=== PATIENT | female | born 1950 | race Caucasian/White ===

== ENCOUNTER 2022-12-21 13:05 | Outpatient (OUT) | payer MEDICARE, SELFPAY ==
--- NOTE | 2022-12-21 13:06 | VEIN_ITS ---
Patient: RASHAUN TRACEY Exam Date: 12/21/2022 : 1950 Gender:F Ordering : DR LAURENT MUSTAFA M.D. Admission #: [id number] Family : Order #: [id number] CLICK HERE TO VIEW EXAM RADIOLOGY REPORT PROCEDURE: VC EXT VENOUS REFLUX KEELEY LMTD COMPARISON: None. INDICATIONS: I83.813 Painful varicose veins of bilat lower extremities TECHNIQUE: Duplex imaging of the lower extremity to assess the deep and superficial venous system for the presence of deep or superficial venous incompetence and to document the location and severity of disease. The study includes evaluation of the great saphenous vein (GSV), anterior accessory saphenous vein (AASV) and small saphenous vein (SSV). Patient scanned in reverse Trendelenburg and standing. FINDINGS: RIGHT LOWER EXTREMITY: Saphenofemoral Junction Reflux: Yes 6.7mm 3.5 sec GSV: Diam (mm) Reflux/ Time (sec) Proximal Thigh 5.7 Yes 2.9 Mid Thigh 4.1 Yes 1.4 Distal Thigh 4.9 Yes 1.2 Prox Calf 4.4 Yes 1.6 Mid Calf 4.0 Yes 1.6 Saphenopopliteal Junction Reflux: 5.5mm Yes 1.9 SSV: Proximal Calf 5.5 Yes 1.5 Mid Calf 4.9 Yes 1.4 AASV: Proximal Thigh 5.9 Yes 1.9 Mid Thigh 4.6 Yes 0.9 Distal Thigh Thrombi: No acute or chronic thrombus visualized Compressibility: Normal Flow: Normal Preforator: Dist/med calf near area of wound 4.0mm with 1.3s reflux. Dist/med 3.4mm with 1.0s reflux. Tech Note: Incompetent GSV, SSV, and AASV. Patent varicose vein mid/med calf 2.3mm with 0.8s reflux. Patent varicose vein 4.0 mm with 1.0s reflux. Patent varicose vein dist/med calf 3.5mm with 2.1s reflux. LEFT LOWER EXTREMITY: Saphenofemoral Junction Reflux: Yes 7.2 mm 1.4 sec GSV: Diam (mm) Reflux/Time (sec) Proximal Thigh 5.9 Yes 1.0 Mid Thigh 4.0 Yes 1.2 Distal Thigh 4.2 Yes 0.9 Prox Calf 3.9 No Mid Calf 3.1 No Saphenopopliteal Junction Relux: 2.2 mm No SSV: Proximal Calf 2.3 No Mid Calf 2.1 No AASV: Not present Proximal Thigh Mid Thigh Distal Thigh Thrombi: No acute or chronic thrombus visualized Compressibility: Normal Flow: Normal [employer]: Mid/med calf 4.1mm with 0s reflux. Tech Note: Incompetent GSV. Patent varicose vein mid/med calf 5.2mm with 0.9s reflux. CONCLUSION: 1. Moderate to severe right and mild left great saphenous vein venous insufficiency with dilatation and saphenopopliteal junction reflux 2. Moderate right small saphenous and anterior accessory saphenous vein venous insufficiency 3. Incompetent perforating vein on the right leg corresponding to an open wound 4. Moderate right leg and mild left leg incompetent varicose veins Dictated by: Laurent Mustafa MD on 12/21/2022 at 14:52 Approved by: Laurent Mustafa MD on 12/21/2022 at 14:54
--- NOTE | 2022-12-21 13:06 | VEIN_ITS ---
Patient: RASHAUN TRACEY Exam Date: 12/21/2022 : 1950 Gender:F Ordering : DR LAURENT MUSTAFA M.D. Admission #: [id number] Family : Order #: [id number] CLICK HERE TO VIEW EXAM RADIOLOGY REPORT PROCEDURE: FACILITY [facility] - OFFICE VISIT INITIAL COMPARISON: None. PROGRESS NOTES: 72-year-old female who presents with a long history of lower extremity pain, swelling and varicose veins culminated in a nonhealing ulceration of the right posterior medial lower leg 2 months ago. The patient has been seen in the vein clinic without significant improvement of the ulcer. The patient's right leg is far worse than the left. The patient describes the pain as aching and burning occasionally heavy. The patient rates the pain as a 6 on a scale of 1-10. The patient has worn compression stockings on and off for several years. The patient's symptoms are worse with prolonged sitting and standing and partially relieved by pain medication and leg elevation. The patient currently is not wearing compression stockings due to pain from the ulceration. The patient denies any signs and symptoms to suggest arterial ischemia. The patient describes a family history significant for varicose veins in her mother and maternal grandmother. Type 2 diabetes in her mother. Heart disease in her brother. period 10 grandchildren. The patient has a 20 pack year history of smoking 1/2 pack per day for the past 40 years. Occasional social alcohol use. No illicit drug use. Past medical history significant for sciatica, type 2 diabetes, heart murmur, lymphedema. Past surgical history neck surgery, low back surgery, tonsillectomy. No history of deep venous thrombus or pulmonary embolus. See separate history and physical for medication list. No prior treatment for varicose or spider veins. Nursing notes were reviewed. After history and physical exam I discussed at length the pathophysiology of venous hypertension and possible treatments, therapies and strategies available. We discussed at length the importance of elevating the lower extremities above the level of the heart, increased physical activity and compression stocking use. I discussed with the patient that her symptoms are likely multifactorial and related to soft tissue in vascular disease from long-standing diabetes, likely component of lymphedema, a component related to poor wound healing from smoking, and activity and venous disease. Treatments hopefully will improve wound healing but ultimately likely will not completely resolve her issues. Ultrasound venous reflux study performed the same day was discussed at length with the patient. The report demonstrates moderate to severe right great , mild left great saphenous, moderate right small and anterior accessory saphenous vein venous insufficiency. Saphenofemoral junction reflux. Incompetent right leg perforating vein in the region of the patient's ulceration. Bilateral incompetent varicose veins right greater than left PHYSICAL EXAM: The right leg demonstrates moderate subcutaneous swelling. Moderate diffuse hemosiderin staining below the knee. There is a full-thickness ulceration distal posterior medial active venous ulcer measuring 8 x 6 cm in diameter. Mild scattered varicose and reticular veins. The left leg demonstrates moderate subcutaneous swelling. Multiple healed ulcerations are observed the largest measuring 2 x 1.5 cm. Moderate diffuse hemosiderin staining below the knee. No active ulceration. Mild scattered varicose and reticular veins Both thighs, legs and feet were symmetrically warm to the touch. posterior tibial and dorsalis pedis pulses were poor. VEIN/[facility] IMPRESSION: 1. Moderate to severe right great, mild left great, moderate right small and anterior accessory saphenous vein venous insufficiency venous insufficiency with saphenofemoral junction reflux 2. Bilateral lower extremity varicose veins 3. Moderate bilateral lower extremity subcutaneous edema with hemosiderin staining 4. Possible bilateral flow significant arterial disease 5. CEAP: C6, Ep, Asp, Pr PLAN: 1. Endovenous laser ablation right great saphenous vein followed by right small saphenous vein followed by right perforating vein with possible treatment of the right anterior accessory saphenous vein 2. Bilateral lower extremity micro foam chemical ablation of incompetent varicose veins 3. Long-term use of bilateral thigh-high 20-30 mm compression stockings 4. Smoking cessation 5. Elevated legs and increased physical activity for symptomatic relief Nurse notes, history and physical were reviewed and confirmed, see attached forms. The nurse was present throughout the physical exam and consultation Dictated by: Laurent Mustafa MD on 12/21/2022 at 15:38 Approved by: Laurent Mustafa MD on 12/21/2022 at 15:47
== END 2022-12-21 13:06 | disposition home or self-care (01) ==
PROVIDERS: PCP Radiology Diagnostic Radiology; Visit Provider Radiology Diagnostic Radiology
DX: R60.0 Localized edema (principal); Z87.2 Personal history of diseases of the skin and subcutaneous tissue; I89.0 Lymphedema, not elsewhere classified
CPT/HCPCS: 93970; G0463

== ENCOUNTER 2023-01-04 13:06 | Outpatient (OUT) | payer OTHER, SELFPAY ==
--- NOTE | 2023-01-04 13:08 | VEIN_ITS ---
The [address] [address] Patient Name: RASHAUN TRACEY MRN: [id number] date: 1950 Sex: F Assigned Patient Location: Current Patient Location: Accession/Order Number: [id number] Exam Date: 01/04/2023 13:11 Report Date: 01/04/2023 15:20 At the request of: REGGIE HINOJOSA Procedure: VC Endovenous Ablation 1VeinRT EXAMINATION: VC Endovenous Ablation 1VeinRT HISTORY: I83.813 Painful varicose veins of bilat lower extremities The risks and benefits of the procedure had been previously discussed, and were rediscussed at length. Informed written consent was obtained. Daphne Mac RN and Eli Gonsalez RDMS, RVT assisted. Time out procedure was performed. The right lower extremity was prepared and draped in the usual sterile fashion to allow knee flexion in the sterile field. Duplex ultrasound probe was draped in a sterile cover, sterile transmission gel was used. Venous mapping was performed with the areas of dilation and large tributaries marked. The total length was [64 cm from the entry lower calf to 3 cm below the Saphenofemoral junction. The diameter of the right great saphenous vein ranged from 5.7 mm. A 30 gauge needle and 1% buffered lidocaine was used to anesthetize the entry site. A 4 mm incision was made with a scalpel and the saphenous vein was entered percutaneously under direct ultrasound guidance with a micropuncture set, a single stick was successful in gaining access. A micro-guide wire was inserted and the needle removed. A micro-set including a dilator was inserted over the microwire and the needle and dilator were removed. A guide wire was inserted through the micro-set and guided through the saphenous vein to the saphenofemoral junction. The dilator was removed and an introducer sheath was inserted over the wire until the end of the sheath entered the saphenofemoral junction. The dilator and wire were removed and the 600 micron fiber was introduced and placed and positioned so that it extended beyond the sheath and was 3 cm distal to the saphenofemoral or saphenopopliteal junction. Final position of the fiber was determined by ultrasound guidance and duplex imaging. Tumescent anesthetic was delivered by ultrasound guidance. 550 cc of fluid was delivered along the entire course of the saphenous vein. The solution consisted of 1000 cc of normal saline with 40 mL of 1% lidocaine and 20 mL of sodium bicarbonate. A final positioning check was made. The energy source was turned on by means of the foot pedal and the fiber and sheath were withdrawn. The total number of Joules delivered was 3287. The laser was active for 411 seconds under continuous pulse, average laser use of 8 J. Laser start time 2:10 PM, 01/04/2023. Laser stop time 2:18 PM, 01/04/2023. A duplex ultrasound revealed compressibility and flow at the saphenofemoral junction immediately after the procedure. Hemostasis at the access site was achieved. The skin incision of the saphenous vein was closed with a 4 x 4. A compression stocking was applied. Postop instructions were given. A follow up appointment was recommended and scheduled. The patient tolerated the procedure well. Electronically authenticated by: AKIN ALDANA Date: 01/04/2023 15:20
[2023-01-04] MEDS: LIDOCAINE HCL 1% 100 MG/10 ML MDV INJ (13:54)
[2023-01-04] MEDS: 0.9 % SODIUM CHLORIDE 500 ML, LIDOCAINE HCL 20 ML, SODIUM BICARBONATE 10 MEQ INJ (13:55)
== END 2023-01-04 13:07 | disposition home or self-care (01) ==
LOC: VC 13:07
PROVIDERS: PCP Radiology Diagnostic Radiology; Visit Provider Radiology Diagnostic Radiology
DX: I83.813 Varicose veins of bilateral lower extremities with pain (principal)
CPT/HCPCS: 36478

== ENCOUNTER 2023-01-12 12:29 | Outpatient (OUT) | payer OTHER, SELFPAY ==
--- NOTE | 2023-01-12 12:32 | VEIN_ITS ---
Patient Name: RASHAUN TRACEY MR#: [id number] : 1950 Exam Date: 01/12/2023 Ordering Doctor: DR REGGIE HINOJOSA M.D. RADIOLOGY REPORT PROCEDURE: VC EXT VENOUS RT LMTD COMPARISON: None. INDICATIONS: Phlebitis of superficial veins of rt lower extremity I80.01 TECHNIQUE: Lower extremity valles scale and Duplex Doppler evaluation of the deep venous system from the inguinal ligament through the calf veins. FINDINGS: REGION: Right lower extremity. THROMBI: Negative for DVT. Heat induced thrombus visualized 2.1cm from the SFJ. The heat induced thrombus extends from groin to distal calf. COMPRESSIBILITY: Partial compressibility of segments. FLOW: Areas of no flow corresponding to thrombus OTHER: CONCLUSION: 1. Successful post ablation occlusion of right great saphenous vein. Dictated by: Keon Bustillo M.D. on 01/12/2023 at 14:00 Approved by: Keon Bustillo M.D. on 01/12/2023 at 14:02
--- NOTE | 2023-01-12 12:32 | VEIN_ITS ---
Patient Name: RASHAUN TRACEY MR#: [id number] : 1950 Exam Date: 01/12/2023 Ordering Doctor: DR REGGIE HINOJOSA M.D. RADIOLOGY REPORT PROCEDURE: FACILITY [facility] - OFFICE VISIT FOLLOW UP COMPARISON: None. PROGRESS NOTES: The patient reports improvement in leg symptoms. There has been interval reduction in varicosities. The patient has followed our recommendations to walk 20-30 minutes once or twice per day since the procedure. Physical exam demonstrates decrease in varicosities of the leg. Persistent varicosities are identified along the right leg. Persistent open wound of distal lower extremity. Review of the ultrasound performed the same day demonstrates occlusive thrombus extending throughout the treated vein(s), see separate report, consistent with a successful ablation. No thrombus extending into or beyond the saphenofemoral junction. The patient expressed a desire to proceed with treatment of remaining superficial varicosities. The patient was informed that treatment was a process and would require several procedures/sessions. VEIN/[facility] EST TD IMPRESSION: 1. Successful ablation of the right great saphenous vein(s). 2. Persistent superficial varicose veins and right lower extremity open wound and symptoms. PLAN: Endovenous laser ablation of right small saphenous vein. Nurse notes, history and physical were reviewed and confirmed, see attached forms. The nurse was present throughout the physical exam and consultation Dictated by: Keon Bustillo M.D. on 01/12/2023 at 14:02 Approved by: Keon Bustillo M.D. on 01/12/2023 at 14:03
== END 2023-01-12 12:30 | disposition home or self-care (01) ==
LOC: VC 12:29
PROVIDERS: PCP Radiology Diagnostic Radiology; Visit Provider Radiology Diagnostic Radiology
DX: I80.01 Phlebitis and thrombophlebitis of superficial vessels of right lower extremity (principal)
CPT/HCPCS: 93971; G0463